=== PATIENT | female | born 1990 | race Caucasian/White ===

== ENCOUNTER 2018-03-01 13:42 | Emergency (ER) | payer OTHER ==
[~2018-03-01] VITALS: Ht 152.4 cm; Wt 74.8 kg
[2018-03-01 13:48] VITALS: BP 145/93
[2018-03-01] MEDS ORDERED: MOBIC7.5 MG PO (15:36)
[2018-03-01] MEDS ORDERED: OSELB75 PO (15:36)
[2018-03-01] MEDS ORDERED: VENTOLIN HFA 1818 GM INH (15:44)
== END 2018-03-01 16:35 | disposition home or self-care (01) ==
LOC: ER 13:42
DX: J11.1 Influenza due to unidentified influenza virus with other respiratory manifestations (principal)